=== PATIENT | female | born 1975 | race Caucasian/White ===

== ENCOUNTER 2024-01-04 09:11 | Emergency (ER) | payer BC, SELFPAY ==
[2024-01-04 09:15] VITALS: BP 123/76
--- NOTE | 2024-01-04 09:46 | ED.GENMED ---
History of Present Illness
<Suzi Bean PA-C - Last Filed: 01/04/24 18:36>
General
Chief Complaint: Fall
Source: patient
Exam Limitations: none
Time Seen by Provider: 01/04/24 09:29
Nursing documentation reviewed up to this point in time: agreed with
History of Present Illness
History of Present Illness:
48-year-old female with history cataracts, glaucoma presenting to the emergency department for evaluation following mechanical fall about an hour ago. Patient states she was walking when she tripped on an uneven sidewalk falling forward landing on
the left side of her body. Patient states she did lightly hit the left side of her cheek but denies any loss of consciousness. Patient states that she was able to get up herself and has been walking independently since. Patient came to the
emergency department mainly for evaluation of her left hand and left wrist. Patient denies any headache, neck pain, nausea/vomiting, dizziness. Patient denies any numbness/tingling in extremities, weakness. Patient denies any visual changes from
her baseline.
Patient does not take any blood thinners. Patient is up-to-date with all vaccines.
Review of Systems
<Suzi Bean PA-C - Last Filed: 01/04/24 18:36>
Review of Systems
Allergies reviewed?: Yes
All Other Systems: ROS reviewed and negative except as documented in HPI and ROS
Phy Exam
<Suzi Bean PA-C - Last Filed: 01/04/24 18:36>
Physical Exam
Physical Exam:
Vitals: Patient's vital signs are stable.
General: Patient is very well appearing, no acute distress
Skin: Warm and dry, no rashes or lesions. No ecchymoses
Head: Normocephalic, atraumatic. Very mild tenderness of left medial cheek without any edema, ecchymoses, or obvious deformity. No pain over TMJ.
Eyes: Sclera nonicteric. EOMs intact. No proptosis bilaterally. No nystagmus.
Throat: Protecting airway. Uvula midline. No malocclusion of teeth
Neck: Normal ROM, no cervical spine tenderness, no meningismus. No midline spinal tenderness
Cardiac: Regular rate and rhythm, no murmurs.
Pulm: Normal respiratory effort, no wheezes, rales, rhonchi heard on exam.
Abdomen: Abdomen soft. No abdominal tenderness.
Extremities: Edema and ecchymoses noted over left hypothenar eminence with point tenderness to palpation around base of fifth metacarpal. No tenderness at left wrist with full ability to flex and extend at wrist. Otherwise left upper extremity
atraumatic. Left upper extremity neurovascularly intact. Right upper extremity and bilateral lower extremities atraumatic and nontender with full range of motion
Neuro: AAOx3. CN II-XII intact. No focal neurologic deficits. Sensation fully intact. Strength 5 out of 5 in upper and lower extremities
Psychiatric: Normal affect.
Course
<Suzi Bean PA-C - Last Filed: 01/04/24 18:36>
Orders/Labs/Results
Orders:
Orders
01/04/24 09:23
CR Wrist - Left Min 3 Views Urgent
Comment:
Reason For Exam: pain after a fall
Forearm, Left 2 View [CR Forearm - Left 2 View] Urgent
Comment:
Reason For Exam: pain after a fall
01/04/24 09:41
Acetaminophen [Tylenol] 650 mg PO NOW STA
01/04/24 10:06
Splints/Slings/Crut- Treatment ONCE
Location: Left
Type of Splint: Amasa Wrist
Vital Signs
Initial and Last Documented VS:
Initial Vital Signs
Temp Pulse Resp BP Pulse Ox
98.1 F 85 16 123/76 100
01/04/24 09:15 01/04/24 09:15 01/04/24 09:15 01/04/24 09:15 01/04/24 09:15
Last Documented Vital Signs
Temp Pulse Resp BP Pulse Ox
98.1 F 85 16 123/76 100
01/04/24 09:15 01/04/24 09:15 01/04/24 09:15 01/04/24 09:15 01/04/24 09:15
<Jose Malin DO - Last Filed: 01/04/24 10:07>
Orders/Labs/Results
Orders:
Orders
01/04/24 09:23
CR Wrist - Left Min 3 Views Urgent
Comment:
Reason For Exam: pain after a fall
Forearm, Left 2 View [CR Forearm - Left 2 View] Urgent
Comment:
Reason For Exam: pain after a fall
01/04/24 09:41
Acetaminophen [Tylenol] 650 mg PO NOW STA
01/04/24 10:06
Splints/Slings/Crut- Treatment ONCE
Location: Left
Type of Splint: Amasa Wrist
Vital Signs
Initial and Last Documented VS:
Initial Vital Signs
Temp Pulse Resp BP Pulse Ox
98.1 F 85 16 123/76 100
01/04/24 09:15 01/04/24 09:15 01/04/24 09:15 01/04/24 09:15 01/04/24 09:15
Last Documented Vital Signs
Temp Pulse Resp BP Pulse Ox
98.1 F 85 16 123/76 100
01/04/24 09:15 01/04/24 09:15 01/04/24 09:15 01/04/24 09:15 01/04/24 09:15
<Suzi Bean PA-C - Last Filed: 01/04/24 18:36>
MDM/Problems Addressed
Differential Diagnosis Includes:
Not limited to: Contusion, abrasion, sprain, fracture
MDM/Problems Addressed:
48-year-old female presenting following trip and fall earlier today on the sidewalk. Very mild tenderness of her left lateral cheek. Patient is neurologically intact. No evidence of jaw injury. No C-spine or midline spinal tenderness. No
indication for head CT/neck CT at this time. Patient ambulating without any difficulty. Patient complaining of pain in her left hand. X-ray concerning for possible minor fracture at base of left fifth metacarpal. Will place in universal volar
splint and have patient follow-up with orthopedic. Return precautions discussed with patient at length. Patient comfortable with plan. All questions answered.
Chronic conditions affecting care:
N/A
Acute Exacerbation and/or Progression of Chronic Illness:
N/A
<Suzi Bean PA-C - Last Filed: 01/04/24 18:36>
*Radiology
Radiology exam reviewed: preliminary read by ED provider and radiology read reviewed
*Pulse Oximetry
Patient hypoxic: no
*EKG
Interpreted by ED Provider?: NA
*Air Export Agent Interpretation
Rate: Air Export Agent- N/A
*Critical Care Note
Total Time (30-74mins, 75-104mins- exclusive of procedures): Not Applicable
ED Attending Note
<CONI Maya Last Filed: 01/04/24 18:36>
-
Portions of this chart may have been created with voice recognition software.� Occasional wrong word or��sound alike� substitutions may have occurred due to the inherent limitations of voice recognition software.
<Jose Malin DO - Last Filed: 01/04/24 10:07>
ED Attending Note
Patient seen and examined by attending physician: Yes
I performed the substantive portion of visit, reviewed & personally made and approve the management plan that is documented in note by myself or HOLLIE.: Yes
ED Attending Note:
I have seen and evaluated the patient with a [id number] encounter. I have spoken to the advance practicer provider and involved in the medical history, the physical exam, medical decision making.
Evaluation and management service: agree unless noted differently below.
Results interpretation: agree unless noted differently below.
Focused HPI: 48-year-old female presenting for evaluation of left hand injury. Patient had a trip and fall. She complains of pain at her wrist and near the base of her pinky.
Physical exam: Swelling noted to hypothenar eminence. Pain elicited to palpation of base of fifth carpal bone. Extremity otherwise neurovascular intact
Medical Decision Making: X-rays concerning for possible fracture of the base of the fifth carpal. Will place in splint and discussed follow-up with hand
Discharge Plan
Departure
Patient Disposition: Home (Routine Discharge)
Date of Disposition: 01/04/24
Time of Disposition: 10:14
Patient with high blood pressure during this ER visit?: No
Condition: Good
Covid-19: Not Applicable
Discharge Problem:
Fracture of base of fifth metacarpal bone of left hand, Fall
Instructions: Hand fracture
Prescriptions:
No Action
Prednisone
2.5 mg PO DAILY
Pred Forte
DAILY
Alphagan 0.2% Eye Drops
CAPSULE
Timoptic
1 drp BOTH EYES 2XD
Referrals:
Sadie Sanchez MD [Family Provider] -
Prakash Espinosa MD [Active] - Call in 1-3 days for appt
Activity Restrictions/Additional Instructions:
RETURN TO THE EMERGENCY DEPARTMENT WITH ANY SEVERE HEADACHE, NECK PAIN, INTRACTABLE NAUSEA/VOMITING, CHANGES IN VISION, CONFUSION, NUMBNESS/TINGLING IN LEFT UPPER EXTREMITY, WORSENING IN CURRENT SYMPTOMS, OR ANY OTHER CONCERNS
-As discussed�your x-ray showed a small fracture of the base of your fifth finger. You should keep your left hand in the splint. Keep left arm elevated, apply ice. You can take Tylenol and/or Motrin as needed for discomfort.
-You should follow-up orthopedics for further evaluation/management. The contact number has been provided for you above.
Interventions
Interventions:
*Risk Screen - Suicide Last Done: 01/04/24 10:25
*General Assessment Last Done: 01/04/24 10:25
*Neglect/Abuse Screening Last Done: 01/04/24 10:25
ED- Fall Risk Assessment Last Done: 01/04/24 10:25
*ED COVID-19 Vaccine History Last Done: 01/04/24 10:25
*Nursing Disposition Last Done: 01/04/24 10:25
ED-Musculoskeletal Assessment Last Done: 01/04/24 10:24
ED- Neurological Assessment Last Done: 01/04/24 10:24
ED-Skin Assessment Last Done: 01/04/24 10:24
Discharge Date and Time
Discharge Date/Time: 01/04/24 10:25
Print Language: [place]
[2024-01-04] MEDS: TYLENOL 650 MG PO (09:47)
== END 2024-01-04 10:25 | disposition home or self-care (01) ==
LOC: EMR 09:11
PROVIDERS: EMERGENCY PHYSICIAN Student in an Organized Health Care Education/Training Program; FAMILY PHYSICIAN Internal Medicine
DX: S62.317A Displaced fracture of base of fifth metacarpal bone, left hand, initial encounter for closed fracture (principal); S60.222A Contusion of left hand, initial encounter; W01.0XXA Fall on same level from slipping, tripping and stumbling without subsequent striking against object, initial encounter; Y92.480 Sidewalk as the place of occurrence of the external cause; Y93.01 Activity, walking, marching and hiking; H40.9 Unspecified glaucoma; H26.9 Unspecified cataract; Z88.2 Allergy status to sulfonamides
CPT/HCPCS: 99283; 29125; 73090; 73110

== ENCOUNTER 2024-02-05 18:10 | Outpatient (RCR) | payer BC, SELFPAY | END 2024-02-05 23:59 | disposition home or self-care (01) | LOC: ROT 18:10 | PROVIDERS: ATTENDING PHYSICIAN Orthopaedic Surgery; FAMILY PHYSICIAN Internal Medicine | DX: S62.307D Unspecified fracture of fifth metacarpal bone, left hand, subsequent encounter for fracture with routine healing (principal) | CPT/HCPCS: 97010; 97018; 97110; 97166; 97535 ==

== ENCOUNTER → 2024-02-25 15:12 | Outpatient (REF) | payer BC, SELFPAY | LOC: RAD 15:12 | PROVIDERS: ATTENDING PHYSICIAN Obstetrics & Gynecology; FAMILY PHYSICIAN Internal Medicine | DX: N92.5 Other specified irregular menstruation (principal) | CPT/HCPCS: 76830; 76856 ==

== ENCOUNTER → 2024-02-25 15:57 | Outpatient (REF) | payer BC, SELFPAY | LOC: WDC 15:57 | PROVIDERS: ATTENDING PHYSICIAN Obstetrics & Gynecology; FAMILY PHYSICIAN Internal Medicine | DX: Z12.31 Encounter for screening mammogram for malignant neoplasm of breast (principal) | CPT/HCPCS: 77063; 77067 ==

== ENCOUNTER 2024-03-04 12:52 | Outpatient (RCR) | payer BC, SELFPAY | END 2024-03-04 23:59 | disposition home or self-care (01) | LOC: ROT 12:52 | PROVIDERS: ATTENDING PHYSICIAN Orthopaedic Surgery; FAMILY PHYSICIAN Internal Medicine | DX: S62.307D Unspecified fracture of fifth metacarpal bone, left hand, subsequent encounter for fracture with routine healing (principal); Z73.6 Limitation of activities due to disability | CPT/HCPCS: 97010; 97018; 97022; 97110; 97140 ==

== ENCOUNTER 2024-04-07 09:03 | Outpatient (RCR) | payer BC, SELFPAY | END 2024-04-07 23:59 | disposition home or self-care (01) | LOC: ROT 09:03 | PROVIDERS: ATTENDING PHYSICIAN Orthopaedic Surgery; FAMILY PHYSICIAN Internal Medicine | DX: S62.307D Unspecified fracture of fifth metacarpal bone, left hand, subsequent encounter for fracture with routine healing (principal); Z73.6 Limitation of activities due to disability | CPT/HCPCS: 97010; 97018; 97022; 97110; 97140 ==

== ENCOUNTER 2024-04-24 16:05 | Outpatient (RCR) | payer BC, SELFPAY | END 2024-04-24 23:59 | disposition home or self-care (01) | LOC: ROT 16:05 | PROVIDERS: ATTENDING PHYSICIAN Orthopaedic Surgery; FAMILY PHYSICIAN Internal Medicine | DX: S62.307D Unspecified fracture of fifth metacarpal bone, left hand, subsequent encounter for fracture with routine healing (principal); Z73.6 Limitation of activities due to disability | CPT/HCPCS: 97010; 97018; 97110; 97140 ==